=== PATIENT | female | born 1940 | race Caucasian/White ===

== ENCOUNTER 2018-09-05 16:37 | Inpatient (IN) | payer OTHER ==
[~2018-09-05] VITALS: Ht 162.6 cm; Wt 54.1 kg
--- NOTE | ~2018-09-05 | H ---
[facility] [address] [place] [address] HISTORY AND PHYSICAL Name: ANTONELLA TURK Room #: 454-P ADM IN M.R.#: [id number] Admission: 09/05/18 ������������������ Attend Phys: Nayeli Lynne Discharge: ������������������ Date of : 42 Report #: [id number] THIS REPORT FOR: //name// CC: Avni Pate DATE OF SERVICE: 09/05/2018 This is a patient 78 years of age, who has been failing significantly with increasing cough persistent x 2 months. HISTORY OF PRESENT ILLNESS: This is a patient well known to my service, who I have been caring for many years, who has had now about a 2-month history of cough that was minimally productive and ongoing progressive weakness with caregiver breakdown and she was barely able to get around the house now and she came to the office and was just looked very weak and was admitted with a working diagnosis of pneumonia. Etiology not totally clear. PAST MEDICAL HISTORY: Noteworthy for history of hysterectomy, depression. She has had lithotripsy in the past. She has had a bladder tie up. 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 She has had bilateral breast augmentation. She has also had a history of rheumatoid arthritis. MEDICATIONS: Her medication list was only Cipro. She had stopped all of her other medications. FAMILY HISTORY: Noncontributory. SOCIAL HISTORY: She is . Quit smoking about a year ago. No significant alcohol intake. REVIEW OF SYSTEMS: Otherwise, negative. PHYSICAL EXAMINATION: GENERAL: Shows a very weakened patient. She is in no distress. VITAL SIGNS: Stable. HEENT: Otherwise, negative. NECK: Supple without thyromegaly or adenopathy. CHEST: Diminished and coarse. CARDIOVASCULAR: Showed a regular rate and rhythm without murmur. ABDOMEN: Soft and nontender. EXTREMITIES: Showed no cyanosis, clubbing or edema. NEUROLOGIC: Showed nothing focal. Laboratory parameters are pending. ASSESSMENT: This is a patient after reviewing her CT and chest x-ray has an [facility] [place] [place] [address] HISTORY AND PHYSICAL Name: ANTONELLA TURK Room #: 454-P [facility] IN [facility]#: [id number] Admission: 09/05/18 ������������������ Attend Phys: Nayeli Lynne Discharge: ������������������ Date of : 41 Report #: [id number] interstitial pneumonitis process that looks like an atypical pneumonia situation. Whether this could be on the basis of an eosinophilic pneumonitis or an atypical viral type pneumonia is in the differential along with the other usual causes of an interstitial process. Did not appear to be consistent with congestive heart failure or pulmonary fibrosis. PLAN: Respiratory therapy along with corticosteroids and pulmonary evaluation for potentially bronchoscopy. ��������������������������������������������� ���������������������������������������� By: ��������������������������������������������� [id number] Avni Pate MD /nt
[~2018-09-05 16:37] MED LIST: ASA5UEC PO; CYMBALTA20 MG PO; IBUPROFEN 800800 M1 PO; METHOTREXA25 MG/1 ML SUBQ; PREMARIN1.25 MG PO; PROTONIX40 M1 PO; PROZAC20 MG PO; XANAX 0.5 MG0.5 M1 PO; [UNRECOGNIZED DRUG - OTHER] PO
[2018-09-05 17:52] VITALS: BP 137/71
[2018-09-05 19:15] VITALS: BP 97/73
--- NOTE | 2018-09-05 20:51 | NUR ---
Pt direct admit in the floor due to Pneumonia. Came in via wheelchair with . Called Dr Erick Pate for admitting orders, US called his office and said that Dr. Hopkins is oncall- called him instead. Dr Hopkins called and mentioned to him about the direct admission he mentioned that he does not know the patient and said that he'll have Dr Pate call in for the orders. Pt kept comfortable. Med reconcilation to be done- Tried obtaining information from the patient but she mentioned that she has terrible headache, wants medication first, asked her but he cant recall pts medications. Dr Pate called back for admitting orders. Diet and activity as tolerated- diet requested. SL to be put in- night staff informed. For chest xray and CT chest w/o contrast- requested- Night staff aware. To start pt on solu medrol and duoneb- requested. Asked Dr Pate for pt's headache, as per pt Tylenol does not do that much good- Dr Pate aware, ordered Tylenol Extra Strength 2 tabs ordered- asked pharmacy to verify it since patient is complaining of 10/10 headache- medication given to patient right away after validation. Pt informed she's on regular diet, snack pack given to her but asked to have jello instead, snack pack + jello given to her. Pt slightly upset because it took a while for her medication and admitting orders given- explained to her and she calmed down; to have admitting history, education and assessment down after she eats. Night staff informed that above mentioned are not done yet, SL to be put on and CT scan called mentioned that patient can be brought down for her chest CT scan, and to verify with Dr Pate re: Chest xray since she will be having CT scan- Night staff aware. To also verify if pt will be needing o2 to be prescribed- night staff informed.
--- NOTE | 2018-09-05 23:53 | NUR ---
Pt admitted to unit approx 1700 per pt. A/OX4, poor historian and unable to remember the medications she takes and also reported didn't know either although he goes to bed at 1900 stating the only way to get it is from [facility] or Dr. Pate's office. [facility] already closed at this time and pt agreeable to wait for AM to confirm meds. Admission paperwork signed by pt. C/o a headache/non cardiac chest pain especially with coughing,medicated with Tylenol per EMAR and pt resting with eyes closed at this time. VSS. Pt reports she has been weak and using a walker/cane at home, fall precautions implemented and patient encouraged to call for help. Also reports she does have dribbling r/t chronic UTI and wears briefs all the time. Resting with no distress will continue to monitor pt.
[2018-09-06 02:32] VITALS: BP 144/70
[2018-09-06 03:38] VITALS: BP 124/58
[2018-09-06 07:12] VITALS: BP 121/66
[2018-09-06] MEDS ORDERED: PROZAC40 MG PO (10:36)
[2018-09-06] MEDS ORDERED: PREDNISONE 20 M20 M1 PO (10:39)
[2018-09-06] MEDS ORDERED: LEFLUNOMIDE20 MG PO (10:40)
[2018-09-06] MEDS ORDERED: NEURONTIN600 MG PO (10:42)
[2018-09-06] MEDS ORDERED: REFRESH CLASSI1 EACH OPHTHALMIC (10:52)
--- NOTE | 2018-09-06 13:42 | NUR ---
PT ADMITTED RELATED TO PNEUMONIA. CM REVIEWED CHART AND SPOKE WITH CARE TEAM. CM MET WITH PT AT BEDSIDE THIS DAY. PT IS A&O X4. CM ROLE INTRODCUED. PT INDICATED SHE LIVES IN A HOUSE WITH HER SPOUSE WITH 1 STEP TO ENTER AND A FULL FLIGHT TO BASEMENT STEPS. PT INDICATED SHE HAD USED A FWW, CANE, AND A SHOWER CHAIR TO ASSIST WITH MOBILITY SPACE AND MISSILE OPERATIONS. PT INDICATED SHE HAD HOME HEALTH IN THE PAST BUT CAN'T RECALL PROVIDER. PT INDICATED SHE PLANS TO RETURN HOME ONCE MEDICALLY STABLE. PT INDICATED SHE IS INTERESTED IN HOME O2. CM INDICATED THAT TESTEING MIGHT BE DONE TO SEE IF PT QUALIFIES. CM TO FOLLOW INDICATED WITH DC PLANNING.
[2018-09-06 17:40] VITALS: BP 134/56
[2018-09-06 19:10] VITALS: BP 134/62
[2018-09-06 20:01] LABS: HEMATOCRIT 27.4 % (37.0-47.0); HEMOGLOBIN 9.2 gm/dL (12.0-15.0); MCH 31.9 pg (26.0-34.0); MCHC 33.7 g/dL (28.0-37.0); MCV 94.6 fL (80.0-100.0); PLATELET COUNT 456 thou/uL (150-400); RBC 2.89 mil/uL (4.20-5.00); RDW 13.4 % (10.5-14.5); WBC 16.4 thou/uL (4.0-11.0)
[2018-09-06 20:22] LABS: ABSOLUTE NEUTROPHILS 13.1 thou/uL (1.4-8.2); ANISOCYTOSIS 1+
[2018-09-06 20:23] LABS: POLYCHROMASIA OCCASIONAL
--- NOTE | 2018-09-06 20:35 | NUR ---
PATIENT ALERT AND ORIENTED WITH AT BEDSIDE FOR MOST OF THE DAY. PATIENT CONCERNED ABOUT GETTING HER HOME MEDS. CONTACTED DR ALVAREZ AND HE IS AWARE.
--- NOTE | 2018-09-07 00:08 | NUR ---
Assumed care at 1845. Pt resting in bed. AOX4. VSS. Up at blair. Gave pain medication once for JOSEPH. Lung sounds still coarse. No identified needs at the moment. Will continue to monitor.
[2018-09-07 04:00] VITALS: BP 126/56
--- NOTE | 2018-09-07 04:48 | NUR ---
ASSUMED CARE OF PT AT 0045HRS. PT AOX4 AND CALLS FOR HELP NEEDED. PT SLEPT PART OF THE SHIFT. NO S/S OF ACUTE DISTRESS. WILL CONTINUE TO MONITOR.
[2018-09-07 07:20] VITALS: BP 129/59
[2018-09-07 14:15] VITALS: BP 127/64
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
--- NOTE | 2018-09-07 19:26 | NUR ---
PATIENT DOING WELL TODAY. COUGH IS LESSENING. STATED COUGHED SOME APUTUM UP BUT SWALLOWED IT. LUNG SOUNDS DIMINISHED ON THE RIGHT. UP INDEPENDENTLY AND TOLERATING WELL. MAIN COMPLAINT HEAD AND MID BACK PAIN WHICH WAS PARTIALLY RELIEVED WITH TRAMADOL. TOLERATING DIET. STARTED ON DOXYCYCLINE. FAMILY CONCERNED THAT AN ANTIBIOTIC WAS NOT ORDERED UPON ADMISSION. SPOKE WITH DR. WADE AND HE ORDERED THE DOXYCYCLINE. NO OTHER COMPLAINTS.
[2018-09-07 19:39] VITALS: BP 142/58
[2018-09-08 07:09] LABS: ANA INTERPRETATION Negative (Negative)
--- NOTE | 2018-09-08 07:48 | NUR ---
Assumed care at 1845. Pt resting in bed. AOX4. VSS. Still having none productive cough. Up at blair. No identified needs. Will continue to monitor.
[2018-09-08 08:00] VITALS: BP 134/71
[2018-09-08 15:00] VITALS: BP 153/66
--- NOTE | 2018-09-08 17:12 | NUR ---
PT A&OX4, VSS, C/O HEADACHE AND NON STOP COUGH. PATIENT HAS PRODUCTIVE COUGH. PATIENT GIVEN TRAMADOL AND NEW ORDER FOR ROBITUSSIN/CODEINE PLACED PER DOCTORS VERBAL ORDER. PATIENT IS COUGHING LESS, BREATHING REGULAR WITH CRACKLES IN HEARD IN ALL LOBES. WILL CONTINUE TO MONITOR.
[2018-09-08 19:05] VITALS: BP 137/65
--- NOTE | 2018-09-09 03:19 | NUR ---
ASSUMED CARE AROUND 1900. AXOX4. PERSISTENT COUGH. TX PER MD ORDER. NO S/S ACUTE DISTRESS NOTED OR REPORTED AT THIS TIME. WILL CONT TO MONITOR FOR ANY CHANGES IN CONDITION.
[2018-09-09 04:38] VITALS: BP 121/58
[2018-09-09 07:25] VITALS: BP 124/64
--- NOTE | 2018-09-09 13:42 | NUR ---
TOWARDS POC PT A/O X4, VSS, AFERBILE, PRN COUGH MEDS GIVEN. PT HAD TREMORS ON UPPER EXTREMITY AFTER BR SHOWER. PROVIDER NOTIFIED. PRN XANAX GIVEN. WILL CONTINUE TO MONITOR.
[2018-09-09 14:09] VITALS: BP 141/65
[2018-09-09 18:26] LABS: HEMATOCRIT 27.3 % (37.0-47.0); HEMOGLOBIN 8.9 gm/dL (12.0-15.0); MCH 31.1 pg (26.0-34.0); MCHC 32.7 g/dL (28.0-37.0); MCV 95.2 fL (80.0-100.0); RBC 2.87 mil/uL (4.20-5.00); RDW 13.3 % (10.5-14.5)
[2018-09-09 18:32] LABS: CALCIUM 8.6 mg/dL (8.5-10.1); POTASSIUM 3.8 mmol/L (3.5-5.1)
[2018-09-09 19:30] VITALS: BP 106/55
--- NOTE | 2018-09-10 02:49 | NUR ---
ASSUMED CARE AROUND 1899. AXOX4. AFEBRILE. MRSA NARES COLLECTED AND SENT DOWN. IVF INFUSING. PERSISTENT COUGG. TX PER MD ORDER. NO S/S ACUTE DISTRESS NOTED OR REPORTED AT THIS TIME. WILL CONT TO MONITOR FOR ANY CHAGNES IN CONDITION.
[2018-09-10 03:20] VITALS: BP 117/54
[2018-09-10 05:42] LABS: HEMATOCRIT 24.7 % (37.0-47.0); MCH 31.2 pg (26.0-34.0); MCHC 32.5 g/dL (28.0-37.0); MCV 95.9 fL (80.0-100.0); RBC 2.57 mil/uL (4.20-5.00); RDW 13.7 % (10.5-14.5)
[2018-09-10 05:56] LABS: CALCIUM 8.1 mg/dL (8.5-10.1); CREATININE 0.7 mg/dL (0.6-1.0)
[2018-09-10 07:49] VITALS: BP 133/68
[2018-09-10 17:30] VITALS: BP 150/68
[2018-09-10 17:31] VITALS: BP 140/68
--- NOTE | 2018-09-10 19:52 | NUR ---
ASSUMED CARE OF PATIENT AT 0715, PATIENT ALERT AND ORIENTED X 4. PATIENT UP AD POLI. PATIENT C/O PAIN OVER BODY FROM ARTHRITIS, 04/29 REFUSED PAIN MEDS THIS SHIFT. PATIENT HAS 22G LEFT WRIST, RECEIVING IV ANTIBIOTIC, IV FLUIDS D/C. PATIENT HAS CONGESTED COUGH, BILATERAL LUNGS COARSE, RECEIVES SOLU MEDROL IV 62.5 MG EVERY 12 HOURS, O2 AT 2 LITERS/NC. ACCU AC/HS, LAST BLOOD SUGAR 179 REFUSED INSULIN. PATIENT PLACED IN ISOLATION FOR MRSA IN NARES, EDUCATED PATIENT AND SON ON PRECAUTIONS FOR MRSA. VSS STABLE THIS SHIFT, AFREBRILE. WILL CONTINUE TO MONITOR.
[2018-09-10 22:37] VITALS: BP 142/56
[2018-09-11 03:10] VITALS: BP 136/70
--- NOTE | 2018-09-11 04:07 | NUR ---
A/O, calm and cooperative. VSS, afebrile; c/o pain in back, neck, head, pain medication given and worked. bed rest, will keep monitoring.
[2018-09-11 05:39] LABS: HEMATOCRIT 25.6 % (37.0-47.0); HEMOGLOBIN 8.3 gm/dL (12.0-15.0); MCH 30.8 pg (26.0-34.0); MCHC 32.3 g/dL (28.0-37.0); MCV 95.5 fL (80.0-100.0); RBC 2.69 mil/uL (4.20-5.00); RDW 13.6 % (10.5-14.5); WBC 16.1 thou/uL (4.0-11.0)
[2018-09-11 05:53] LABS: CALCIUM 8.8 mg/dL (8.5-10.1); CREATININE 0.6 mg/dL (0.6-1.0); POTASSIUM 4.8 mmol/L (3.5-5.1)
[2018-09-11 07:26] VITALS: BP 146/62
[2018-09-11 15:06] VITALS: BP 153/54
--- NOTE | 2018-09-11 20:03 | NUR ---
PT A&OX4, VSS, DENIES PAIN. PT BREATHING REG, LUNGS COURSE, NON PRODUCTIVE COUGH. PATIENT STATES APPETITE HAS INCREASED. ANTIBIOTICS GIVEN PER ORDERS. WILL CONTINUE TO MONITOR.
[2018-09-11 20:50] VITALS: BP 159/66
[2018-09-12 05:13] VITALS: BP 144/79
[2018-09-12 07:07] VITALS: BP 175/79
--- NOTE | 2018-09-12 07:26 | NUR ---
progress pt pain controlled with oral meds up with sba voiding qs, vss ivf's infusing as ordered.rt tx's continue on room air
--- NOTE | 2018-09-12 12:04 | NUR ---
Nutrition: pt screen for LOS. Only one wt of 119 lb recorded during this admit. Pt reported UBW 120 lb. Nsg noted that pt is tolerating diet and pt reported appetite increasing. No albumin. Meds reviewed, solumedrol noted. BG 89-178. Appears at low nutrition risk at this time. Rec obtain current wt and offer snacks/supplement PRN if appetite decreased.
[2018-09-12 14:42] VITALS: BP 160/64
--- NOTE | 2018-09-12 14:50 | NUR ---
PT STABLE THROUGHOUT SHIFT. PT UP AT POLI, ABLE TO AMBULATE TO BR AND TOLERAT WELL. PT HAD CXR WHICH SHE TOLERATED WELL. NO NEW SKIN ISSUES, GIVEN MEDICATION FOR COUGH. FAMILY AT BEDSIDE.
--- NOTE | 2018-09-12 17:11 | NUR ---
PT REMAINS ON IV ABX CARE TEAM INDICATED PT IS PROGRESSING SLOWLEY. CM TO FOLLOW INDICATED WITH DC PLANNING.
[2018-09-12 19:36] VITALS: BP 171/74
[2018-09-13 04:27] VITALS: BP 136/68
--- NOTE | 2018-09-13 04:32 | NUR ---
ASSUMED CARE OF PT AT 1900HRS. PT IS AOX4 AND UO AD POLI. INCT BRIEFS ON PER PT REQUEST. PT WAS ABLE TO GET COMFORTABLE AND SLEEP THIS SHIFT. NO OTHER S/S OF ACUTE DISTRESS. WILL CONTINUE TO MONITOR.
[2018-09-13 04:37] LABS: CALCIUM 8.3 mg/dL (8.5-10.1); CREATININE 0.7 mg/dL (0.6-1.0); POTASSIUM 4.1 mmol/L (3.5-5.1)
[2018-09-13 04:53] LABS: HEMATOCRIT 29.1 % (37.0-47.0); HEMOGLOBIN 9.5 gm/dL (12.0-15.0); MCH 31.3 pg (26.0-34.0); MCHC 32.6 g/dL (28.0-37.0); MCV 96.1 fL (80.0-100.0); RBC 3.03 mil/uL (4.20-5.00); RDW 13.5 % (10.5-14.5); WBC 15.2 thou/uL (4.0-11.0)
[2018-09-13 07:55] VITALS: BP 139/65
[2018-09-13] MEDS ORDERED: CODEINE SULFATE30 MG PO (09:58)
[2018-09-13] MEDS ORDERED: AUGMENTIN 875-1 EACH PO (10:00)
[2018-09-13] MEDS ORDERED: VENTOLIN HFA 1818 GM INH (10:01)
[2018-09-13] MEDS ORDERED: PREDNISONE 20 M20 MG PO (10:02)
[2018-09-13] MEDS ORDERED: PANTOPRAZOLE SO40 M1 PO (10:03)
[2018-09-13 10:37] VITALS: BP 139/65
--- NOTE | 2018-09-13 11:51 | NUR ---
PT STABLE THROUGHOUT SHIFT. PT DISCHARGED HOME, GIVEN DC INSTRUCTIONS, RX AND RX EDUCATION. PT LEFT UNIT VIA WHEELCHAIR TO PRIVATE VEHICLE.
--- NOTE | 2018-09-14 13:09 | D ---
[facility] [place] [address] [place] [address] DISCHARGE SUMMARY Name: ANTONELLA TURK Room #: 454-P [facility] IN M.R.#: [id number] Admission: 09/05/18 ������������������ Attend Phys: Nayeli Lynne Discharge: 09/13/18 ������������������ Date of : 41 Report #: [id number] THIS REPORT FOR: //name// CC: Avni Pate FINAL DIAGNOSES: 1. Pneumonia. 2. Rheumatoid arthritis. HOSPITAL COURSE: The patient was admitted with shortness of breath. She was treated for pneumonia. MRSA nasal screen was positive, but no sputum culture was reported. She did receive vancomycin. Her Legionella and Streptococcus pneumoniae studies were negative. She improved with steroids and empiric antibiotics. X-ray was revealing pulmonary fibrosis. The working diagnosis, there is a degree of rheumatoid arthritis involvement. This will be followed up as an outpatient. PHYSICAL EXAMINATION: GENERAL: On the day of discharge, she was awake and alert, walking in her room without any oxygen. VITAL SIGNS: She had stable vital signs. LUNGS: Clear, with no wheezing or crackles. HEART: Regular. ABDOMEN: Soft. Normoactive bowel sounds. EXTREMITIES: Showed no edema. DISPOSITION: She is discharged to home with diet and activity as tolerated. Follow up with Dr. Pate in 1 week, Dr. Bauer in 3 weeks. DISCHARGE MEDICATIONS: Codeine 30 mg q. 8 hours p.r.n. cough, Augmentin 875 mg b.i.d. for 1 week, Ventolin inhaler p.r.n. and prednisone taper over 15 days. She will continue Protonix, aspirin, Prozac, ibuprofen, Xanax, leflunomide, gabapentin, eye drops and Protonix and she will continue her methotrexate at home as previously ordered. ��������������������������������������������� <ELECTRONICALLY SIGNED> ���������������������������������������� By: Antolin Torres MD ��������������������������������������������� 09/14/18 1309 [id number] Antolin Torres MD /nt
== END 2018-09-13 14:05 | disposition home or self-care (01) | DRG 195 ==
LOC: 4W 16:37
PROVIDERS: Internal Medicine Geriatric Medicine; Internal Medicine Pulmonary Disease; ADMIT Internal Medicine
DX: J18.9 Pneumonia, unspecified organism (principal); F32.9 Major depressive disorder, single episode, unspecified; M06.9 Rheumatoid arthritis, unspecified; Z87.891 Personal history of nicotine dependence; Z88.8 Allergy status to other drugs, medicaments and biological substances; Z90.710 Acquired absence of both cervix and uterus; Z79.899 Other long term (current) drug therapy
CPT/HCPCS: 10047